=== PATIENT | female | born 1955 | race Caucasian/White ===

== ENCOUNTER 2020-04-19 08:02 | Day surgery (SDC) | payer OTHER ==
[~2020-04-19 08:02] MED LIST: BUPIVACAINE 0.5% VIAL IJ ONE; Lactated Ringers 1,000 ML IV ONE; XYLOCAINE 1% HCL 20 ML MDV ONE
[2020-04-19] MEDS ORDERED: CLINDAMYCIN-D5W 900 MG/50 ML*** 900 MG/50 ML BAG IV ONE (08:16)
[2020-04-19] MEDS ORDERED: Lactated Ringers 1,000 ML IV ONE ×2 (08:17→12:24)
[2020-04-19] MEDS ORDERED: Lactated Ringers 1,000 ML IV SCH (08:30)
[2020-04-19] MEDS ORDERED: CLINDAMYCIN-D5W 900 MG/50 ML*** 900 MG/50 ML BAG IV SCH (08:30)
[2020-04-19 08:55] LABS: BLOOD UREA NITROGEN 33 mg/dL (7-17); CHLORIDE 104 mmol/L (98-107); Calcium 9.5 mg/dL (8.4-10.2); Carbon Dioxide 28 mmol/L (22-30); EST GLOMERULAR FILTRATION RATE > 60.0 ML/MIN; Glucose 113 mg/dL (74-106); Potassium 4.5 mmol/L (3.5-5.1); SODIUM 140 mmol/L (137-145)
[2020-04-19] MEDS ORDERED: SUBLIMAZE 250 MCG/5 ML ONE (09:28)
[2020-04-19] MEDS ORDERED: DIPRIVAN 200 MG/20 ML IV ONE (09:28)
[2020-04-19] MEDS ORDERED: Zemuron 100 MG/10 ML ONE ×2 (09:28→12:48)
[2020-04-19] MEDS ORDERED: Versed 2 MG/2 ML Injection ONE (09:28)
--- NOTE | 2020-04-19 13:23 | XRAY ---
Indication: Hammertoe repair 2nd-4th toes. Intraoperative fluoroscopy provided for 1 minute 2 seconds. 9 digital spot images submitted for interpretation demonstrates orthopedic K wires/screws traversing the entire 2nd-4th toes. Correlate with intraoperative findings/report.
--- NOTE | 2020-04-19 13:23 | XRAY ---
1 minute and 2 seconds fluoroscopy time in surgery for hammer toe repair of the right 2nd, 3rd, and 4th toes.
[2020-04-19] MEDS ORDERED: BRIDION 200MG/2ML IV ONE (13:31)
[2020-04-19] MEDS ORDERED: Zofran 4 MG/2 ML VIAL ONE (14:14)
[2020-04-19] MEDS ORDERED: NORCO 5/325 MG ONE (15:28)
[2020-04-19] MEDS ORDERED: NORCO 5/325 MG PO PRN (15:29)
[2020-04-19 15:51] VITALS: O2SAT 94
--- NOTE | 2020-04-19 15:53 | OP ---
SURGERY DATE/TIME: 04/19/2020 1102 PREOPERATIVE DIAGNOSIS: Digital contractures of digits 2, 3, 4 and 5 of the right foot. POSTOPERATIVE DIAGNOSIS: Digital contractures of digits 2, 3, 4 and 5 of the right foot. PROCEDURE: Correction of hammer toe with proximal interphalangeal joint fusion of digits 2, 3 and 4 and fifth digit derotational arthroplasty. SURGEON: Bhargav Juarez DPM. REGISTERED NURSE MATERNITY: None. ANESTHESIA: General plus local. See injectable. HEMOSTASIS: Ankle tourniquet set to 250 mmHg for 103 minutes. ESTIMATED BLOOD LOSS: Minimal. MATERIALS: One large and two medium phalanx [facility] hammertoe arthrodesis implants, 2-0 Vicryl and 3-0 Nylon, 1.1 mm K-wire and a 262 mm K-wire INJECTABLES: Preoperative block consisting of 30 cc of 1:1 mixture of lidocaine plain and 0.5% bupivacaine plain and a postoperative block consisting of 20 cc of 1:1 mixture of 0.5 Marcaine plain and 1% lidocaine plain. INDICATION FOR THE PROCEDURE: Eleonora is a very pleasant 64 year-old female who presented to my office approximately three weeks ago for concerns of painful contracted digits to the bilateral lower extremity. However the pain that she experiences to the right had become so bad that they have caused her significant pain due to ambulation and secondary to the deformity. At this time she is again experiencing pain when she is not wearing shoe gear secondary to the contractures that she has been experiencing. At this time the patient would like her physical deformity corrected as well as alleviate the pain that she has been experiencing at the dorsal aspect of the proximal interphalangeal joints with shoe gear and ambulation. The patient understands all the risks, complications and benefits of the procedure which include but are not limited to potential failure of surgery, cock-up deformity, too stiff of toes, failure of implant, failure of fusion and possible infection and possible need for revision of surgical outcome. Understanding all of this the patient still agrees to go forward. She is give plenty of time to ask questions and still wishes to proceed at this time. DESCRIPTION OF PROCEDURE AND FINDINGS: Following adequate assessment by the preoperative anesthesia team, the patient was brought into the OR and placed on the OR table in the supine position. Following this well-padded ankle tourniquet was applied to the right ankle and the tourniquet was set to 250 mmHg. At this time an injection consisting of 20 cc of 1:1 mixture of 0.5% bupivacaine and 1% lidocaine plain was injected into the ankle in a ring block type fashion. Following this the right lower extremity was prepped and draped and lowered onto the surgical field. At this time a skin marker was utilized to draw an ellipse over the lesions at the dorsal aspect of digits 2, 3 and 4 where the digital contractures have created a calloused area. These areas were planned to be resected in the process of straightening out the toes. Once these incisions were made and the joint surface identified the medial and lateral collateral ligaments were resected out. Following this a proximal lateral to distal medial ellipse incision was made over the fifth digit at the level of the proximal interphalangeal joint in order to derotate the digit when posed. Following this once all of the joints were exposed, the extensor tendons and their capsules were pulled out of the surgical site and the head of the proximal phalanx of digits 2, 3, 4 and 5 and the base of the middle phalanx of digits of 2, 3 and 4 were resected utilizing a sagittal saw perpendicular to the longitudinal axis of the of these bones respectively. At this time sequentially K-wire was drilled from the recently resected proximal base of the middle phalanx and retrograded out of the tip of the toe just beneath the toe nail this was then retrograded down the longitudinal axis of the proximal phalanx in order engage airplane pilot helper hole. Following this the K-wire was then retrograded so that it could be seen at the base of the middle phalanx and the phalanx implants were placed first in the middle phalanx and following this pressed fit into the proximal phalanx insuring to get adequate [id number] contact of these sites. Following this the K-wires of the respective toes 2, 3 and 4 were driven down to the proximal phalangeal base without crossing the metatarsophalangeal joint surface. At this time attention was directed to the fifth toe where the proximal phalangeal head was resected and the ellipse incision was made at this time. The extensor tendon was repaired and the derotation arthroplasty was completed utilizing a 2-0 Vicryl. Following this the extensor tendon and the capsules were repaired utilizing 2-0 Vicryl, one single interrupted stitch was utilized to coapt the skin edges subcutaneously for digits 2, 3 and 4; and a 4-0 Nylon was utilized to coapt the skin edges at this time. Skin edges in everted horizontal mattress type fashion. At this time the K-wires coming out of digits 2, 3 and 4 were bent and Jurgan balls were applied ends in order to prevent iatrogenic injury. At this time foot was cleansed using wet lap and dried with a dry lap. Betadine was applied to the surgical sites and Adaptic was applied over these. They were then covered with 4x4, Kerlix, 4 inch and 6 inch ANTHONY and following this a forefoot offloading shoe was applied to the patient's right foot. The tourniquet was dropped at approximately 103 minutes and it was noted that the vascular status and the capillary refill time was brisk following letting down of the tourniquet. All toes had adequate blood flow and had blanchable surfaces. The patient was reversed from anesthesia and returned to the postoperative anesthesia care unit with vital signs stable and vascular status intact. The patient handled the procedure without complication or issue. Postoperative orders as designated within the patient's chart.
[2020-04-19 16:15] VITALS: BP 118/74; PULSE 84
== END 2020-04-19 16:19 | disposition home or self-care (01) ==
LOC: SDC 08:02
PROVIDERS: ATTEND Podiatrist Foot & Ankle Surgery
DX: M20.41 Other hammer toe(s) (acquired), right foot (principal); M20.5X1 Other deformities of toe(s) (acquired), right foot; M24.571 Contracture, right ankle; M79.671 Pain in right foot; I10 Essential (primary) hypertension; Z79.899 Other long term (current) drug therapy
CPT/HCPCS: 28285; 36415; 73620; 76000; 80048; J2250; J2405; J2704; J3010; A9270-GY

== ENCOUNTER 2020-06-07 07:06 | Day surgery (SDC) | payer OTHER ==
[2020-06-07] MEDS ORDERED: CLINDAMYCIN-D5W 900 MG/50 ML*** 900 MG/50 ML BAG IV ONE (08:04)
[2020-06-07] MEDS ORDERED: Lactated Ringers 0 ML IV ONE (08:04)
[2020-06-07] MEDS ORDERED: CLINDAMYCIN-D5W 900 MG/50 ML*** 900 MG/50 ML BAG IV SCH (08:30)
[2020-06-07] MEDS ORDERED: Lactated Ringers 1,000 ML IV SCH (08:30)
[2020-06-07] MEDS ORDERED: Versed 2 MG/2 ML Injection ONE (10:30)
[2020-06-07] MEDS ORDERED: SUBLIMAZE 100 MCG/2 ML ONE (10:30)
[2020-06-07] MEDS ORDERED: Zemuron 100 MG/10 ML ONE (10:30)
[2020-06-07] MEDS ORDERED: DIPRIVAN 200 MG/20 ML IV ONE (10:30)
[2020-06-07] MEDS ORDERED: BUPIVACAINE 0.5% VIAL IJ ONE (11:15)
[2020-06-07] MEDS ORDERED: Ephedrine Sulfate 50 MG/ML ONE (11:46)
[2020-06-07] MEDS ORDERED: BRIDION 200MG/2ML IV ONE (12:59)
[2020-06-07] MEDS ORDERED: Lactated Ringers 1,000 ML IV ONE (13:06)
--- NOTE | 2020-06-07 13:21 | XRAY ---
Indication: Left 2nd-4th toe arthroplasty. Intraoperative fluoroscopy provided for 1 minute 55 seconds. 12 digital spot images submitted for interpretation demonstrates orthopedic K wires traversing entire 3rd-4th toes and orthopedic K wire/screw traversing entire 2nd toe. Correlate with intraoperative findings/reports.
--- NOTE | 2020-06-07 13:45 | OP ---
Podiatry Procedure Note Procedure Date:: 06/07/20 Procedure Time: 13:39 Podiatry Procedure Note: SURGERY DATE/TIME: 06/07/2020 PREOPERATIVE DIAGNOSIS: Digital contractures of digits 2, 3, 4 and 5 of the Left foot. POSTOPERATIVE DIAGNOSIS: Digital contractures of digits 2, 3, 4 and 5 of the Left foot foot. PROCEDURE: Correction of hammer toe with proximal interphalangeal joint fusion of digits 2, 3 and 4 and fifth digit derotational arthroplasty. SURGEON: Bhargav Juarez DPM. NEWSPAPER CLIPPER: None. ANESTHESIA: General plus local. See injectable. HEMOSTASIS: Ankle tourniquet set to 250 mmHg for 103 minutes. ESTIMATED BLOOD LOSS: Minimal. MATERIALS: One large and two medium phalanx [facility] implants, 2-0 Vicryl and 3-0 Nylon, 1.1 mm K-wire INJECTABLES: Preoperative block consisting of 30 cc of 1:1 mixture of lidocaine plain and 0.5% bupivacaine plain and a postoperative block consisting of 20 cc of 1:1 mixture of 0.5 Marcaine plain and 1% lidocaine plain. INDICATION FOR THE PROCEDURE: Eleonora is a very pleasant 64 year-old female who presented to my office [id number] weeks ago for concerns of painful contracted digits to the bilateral lower extremity. However the pain that she experiences to the left had become so bad that they have caused her significant pain due to ambulation and secondary to the deformity. At this time the patient would like her physical deformity corrected as well as alleviate the pain that she has been experiencing at the dorsal aspect of the proximal interphalangeal joints with shoe gear and ambulation. The patient understands all the risks, complications and benefits of the procedure which include but are not limited to potential failure of surgery, cock-up deformity, too stiff of toes, failure of implant, failure of fusion and possible infection and possible need for revision of surgical outcome. Understanding all of this the patient still agrees to go forward. She is give plenty of time to ask questions and still wishes to proceed at this time. DESCRIPTION OF PROCEDURE AND FINDINGS: Following adequate assessment by the preoperative anesthesia team, the patient was brought into the OR and placed on the OR table in the supine position. Following this well-padded ankle tourniquet was applied to the right ankle and the tourniquet was set to 250 mmHg. At this time an injection consisting of 20 cc of 1:1 mixture of 0.5% bupivacaine and 1% lidocaine plain was injected into the ankle in a ring block type fashion. Following this the left lower extremity was prepped and draped and lowered onto the surgical field. At this time a skin marker was utilized to draw an ellipse over the lesions at the dorsal aspect of digits 2, 3 and 4 where the digital contractures have created a calloused area. These areas were planned to be resected in the process of straightening out the toes. Once these incisions were made and the joint surface identified the medial and lateral collateral ligaments were resected out. Following this a proximal lateral to distal medial ellipse incision was made over the fifth digit at the level of the proximal interphalangeal joint in order to derotate the digit when posed. Following this once all of the joints were exposed, the extensor tendons and their capsules were pulled out of the surgical site and the head of the proximal phalanx of digits 2, 3, 4 and 5 and the base of the middle phalanx of digits of 2, 3 and 4 were resected utilizing a sagittal saw perpendicular to the longitudinal axis of the of these bones respectively. At this time sequentially K-wire was drilled from the recently resected proximal base of the middle phalanx and retrograded out of the tip of the toe just beneath the toe nail this was then retrograded down the longitudinal axis of the proximal phalanx in order engage commuter pilot hole. Following this the K-wire was then retrograded so that it could be seen at the base of the middle phalanx and the phalanx implants were placed first in the middle phalanx and following this pressed fit into the proximal phalanx insuring to get adequate [id number] contact of these sites. Following this the K-wires of the respective toes 2, 3 and 4 were driven down to the proximal phalangeal base without crossing the metatarsophalangeal joint surface. At this time attention was directed to the fifth toe where the proximal phalangeal head was resected and the ellipse incision was made at this time. The extensor tendon was repaired and the derotation arthroplasty was completed utilizing a 2-0 Vicryl. Following this the extensor tendon and the capsules were repaired utilizing 2-0 Vicryl, one single interrupted stitch was utilized to coapt the skin edges subcutaneously for digits 2, 3 and 4; and a 4-0 Nylon was utilized to coapt the skin edges at this time. Skin edges in everted horizontal mattress type fashion. At this time the K-wires coming out of digits 2, 3 and 4 were bent and Jurgan balls were applied ends in order to prevent iatrogenic injury. At this time foot was cleansed using wet lap and dried with a dry lap. Betadine was applied to the surgical sites and Adaptic was applied over these. They were then covered with 4x4, Kerlix, 4 inch and 6 inch ANTHONY and following this a forefoot offloading shoe was applied to the patient's right foot. The tourniquet was dropped at approximately 75 minutes and it was noted that the vascular status and the capillary refill time was brisk following letting down of the tourniquet. All toes had adequate blood flow and had blanchable surfaces. The patient was reversed from anesthesia and returned to the postoperative anesthesia care unit with vital signs stable and vascular status intact. The patient handled the procedure without complication or issue. Postoperative orders as designated within the patient's chart.
--- NOTE | 2020-06-07 14:07 | XRAY ---
1 minute and 55 seconds fluoroscopy time in surgery for arthroplasty left foot.
[2020-06-07 14:49] VITALS: O2SAT 92
[2020-06-07] MEDS ORDERED: NORCO 5/325 MG PO PRN (15:01)
[2020-06-07 15:12] VITALS: BP 135/81; PULSE 84
== END 2020-06-07 15:15 | disposition home or self-care (01) ==
LOC: SDC 07:06
PROVIDERS: ATTEND Podiatrist Foot & Ankle Surgery
DX: M20.42 Other hammer toe(s) (acquired), left foot (principal); M79.672 Pain in left foot; L84 Corns and callosities
CPT/HCPCS: 28285; 73620; 76000; J2250; J2704; J3010; A9270-GY